=== PATIENT | female | born 2000 ===

== ENCOUNTER 2019-12-10 21:11 | Inpatient (IN) | payer MEDICAID, OTHER ==
[2019-12-11] MEDS ORDERED: D5 1/2 NS w/20 mEq KCL 1,000 ML IV PRN (00:15)
[2019-12-11] MEDS ORDERED: Sodium Chloride 0.9% 1,000 ML IV PRN ×4 (00:15)
[2019-12-11] MEDS ORDERED: NS 0.9% w/ 20 MEQ KCL 1,000 ML IV PRN ×2 (00:15)
[2019-12-11] MEDS ORDERED: Electrolyte Replacement Protocol IVPB SCH (00:15)
[2019-12-11] MEDS ORDERED: Dextrose 5 %-0.45 % NaCl 1,000 ML IV PRN (00:15)
[2019-12-11] MEDS ORDERED: HUMULIN R 100 UNITS in Sodium Chloride 0.9% 100 ML IVPB SCH (00:15)
[2019-12-11] MEDS ORDERED: hydrALAZINE 20 MG/ML VIAL SLOW IVP PRN (00:16)
[2019-12-11] MEDS ORDERED: Morphine 2 MG/ML VIAL SLOW IVP PRN (00:16)
[2019-12-11] MEDS ORDERED: cloNIDine 0.1 MG TAB PO PRN (00:16)
[2019-12-11] MEDS ORDERED: Promethazine HCl 12.5 MG in Sodium Chloride 0.9% 50 ML IVPB PRN (00:16)
[2019-12-11] MEDS ORDERED: Labetalol HCl 100 MG/20 ML VIAL SLOW IVP PRN (00:16)
[2019-12-11] MEDS ORDERED: Guaifenesin DM 100-10/5 ML UDCUP PO PRN (00:16)
[2019-12-11] MEDS ORDERED: Acetaminophen 325 MG TAB PO PRN (00:16)
--- NOTE | 2019-12-11 00:19 | PDOC.HHP ---
Hospitalist HPI - History of Present Illness Pleuritic chest pain History of Present Illness: Patient is a 19 year old female with PMH T1DM, PTSH, cystic fibrosis, anxiety who presents as transfer from [facility] ED for pleuritic chest pain, patient reports the pain began 3 weeks ago, it is left sided and pleuritic, 10/10, not positional. Denies nausea, vomiting, abdominal pain, calf pain, tenderness, cough, fever, diaphoresis, sob, palpitation. There, patient had labs which revealed Na 151, K 5.7, glucose 674. She also had high D dimer. COVID 19 screen negative, UA w/ 2+ blood and glucose, cardiac enzymes negative. EKG was sinus tachycardia rate 130s no acute ST changes or other acute changes. Patient was suspected to be in DKA, given insulin gtt which ran out on ambulance as well as IVF 2L and pain/anxiety medication. She had a central line placed in R femoral. CXR perfromed and suspected R upper lobe pneumonia. CTA chest ordered, which showed R hilar lymphadenopathy, R axilla soft tissue changes (which are consistent with patients visible skin pattern and do not concern me), RUL infiltrates, chronic pancreatitis. Patient radiology report at first states she has PE however was addended to retract this and report no visible PE observed. She went to [facility] and [facility] before going to [place] ED which is where she was before being transferred here. She reports that she controls DM well at home normally, takes lantus 30/25 units with breakfast/dinner, as well as a sliding scale of short acting insulin 5-20 units with each meal. Here labs markedly improved. glucose 300, BMP otherwise back to normal. Hospitalist ROS - Review of Systems Constitutional: denies: fever, chills, sweats, weakness, malaise, other Eyes: denies: pain, vision change, conjunctivae inflammation, eyelid inflammation, redness, other ENT: denies: ear pain, ear discharge, nose pain, nose discharge, nose congestion , mouth pain, mouth swelling, throat pain, throat swelling, other Respiratory: reports: pleuritic pain. denies: cough, dry, shortness of breath, hemoptysis, SOB with excertion, sputum, wheezing, other Cardiovascular: denies: chest pain, palpitations, orthopnea, paroxysmal noc. dyspnea, edema, light headedness, other Gastrointestinal: denies: nausea, vomiting, abdominal pain, diarrhea, constipation, melena, hematochezia, other Genitourinary: denies: dysuria, frequency, incontinence, hematuria, retention, other Musculoskeletal: denies: neck pain, shoulder pain, arm pain, back pain, hand pain, leg pain, foot pain, other Skin: denies: rash, lesions, jinny, bruising, other Neurological: denies: weakness, numbness, incoordination, change in speech, confusion, seizures, other All other systems reviewed; all pertinent +/- noted in HPI/Subj - Medication Medications: insulin per HPI. buspirone and lisinopril unknown doses Hospitalist History - Past Medical History Other Medical History: T1DM, PTSH, cystic fibrosis, anxiety - Past Surgical History Other Surgical History: nasal polyp, appendectomy - Family History Family History: reports: no pertinent history - Social History Smoking Status: Never smoker Alcohol: reports: None Drugs: reports: none - Exam General Appearance: NAD, awake alert General - other findings: vital signs reviewed, see nursing notes for values Eye: PERRL, anicteric sclera ENT: normocephalic atraumatic, no oropharyngeal lesions, moist mucosa Neck: supple, symmetric, no JVD, no thyromegaly, no lymphadenopathy, no carotid bruit Heart: RRR, no murmur, no gallops, no rubs, normal peripheral pulses Respiratory: CTAB, no wheezes, no rales, no ronchi, normal chest expansion, no tachypnea, normal percussion Gastrointestinal: soft, non-tender, non-distended, normal bowel sounds, no palpable masses, no hepatomegaly, no splenomegaly, no bruit Extremities: no cyanosis, no clubbing, no edema Skin: normal turgor, no lesions, no rashes Neurological: cranial nerve grossly intact, normal sensation to touch, no weakness, no focal deficits, no new deficit Musculoskeletal: normal tone, normal strength, no muscle wasting Psychiatric: normal affect, normal behavior, A&O x 3 Hospitalist Results - Labs Result Diagrams: 12/11/19 00:59 12/11/19 00:59 Lab results: ~75 pages outside records reviewed, see HPI for details. Hospitalist H&P A/P - Plan Plan: Patient is a 19 year old female with PMH T1DM, PTSH, cystic fibrosis, anxiety who presents as transfer from [facility] ED for pleuritic chest pain, # RLL pneumonia - likely cause of pleuritic pain, of note patient had CTA at outside hospital with prelim read of PE but addendum stating no PE observed. - admitted to ICU for DKA - start azithromycin - consult pulmonary in AM, may benefit from repeat CTA this admission since outside records contradictory perhaps # DKA, t1DM w/ hyperglyemia - has resolved with insulin drip in transit, will resume insulin at patient reported home dose and start diabetic diet and continue IVF # hypernatremia # hyperkalemia - likely due to DKA which has resolved # history of psychiatric disorder - PTSD, anxiety, continue home meds and add PRN ativan for acute panic symptoms # cystic fibrosis - pancreas changes noted on imaging, resume creon # DVT ppx - lovenox # GI ppx - PPI Full code likely able to downgrade in AM now that DKA resolved
[2019-12-11] MEDS ORDERED: Enoxaparin Sodium 80 MG/0.8 ML SYRINGE SC SCH (01:00)
[2019-12-11 01:09] LABS: #Basophils 0.1 thou/uL (0.0-0.2); #Lymphocytes 2.3 thou/uL (1.20-3.40); #Monocytes 0.6 thou/uL (0.11-0.59); #Neutrophils 6.5 thou/uL (1.40-6.50); %Basophils 0.6 % (0.0-1.0); %Eosinophils 0.5 % (0.0-10.0); %Lymphocytes 24.2 % (28.0-48.0); %Monocytes 6.2 % (0.0-4.0); %Neutrophils 68.5 % (31.0-61.0); Hemoglobin 11.4 g/dL (12.0-16.0); Mean Corpuscular HGB CONC 33.9 g/dL (32.0-36.0); Mean Corpuscular Hemoglobin 30.7 pg (25.0-35.0); Mean Corpuscular Volume 90.6 fL (78.0-98.0); Platelet Count 317 thou/uL (130-400); RBC Distribution Width 10.5 % (11.5-14.5); White Blood Cell (WBC) Count 9.5 thou/uL (4.8-10.8)
[2019-12-11 01:14] LABS: BHCG - Serum Negative (NEGATIVE); Pregs Control Background? CLEAR/WHITE (CLR/WHITE); Pregs Control Bar Appear? YES (CONTROL BAR)
[2019-12-11 01:15] LABS: Prothrombin Time 13.5 sec (12.0-14.7)
[2019-12-11 01:29] LABS: Lactic Acid 0.8 mmol/L (0.5-2.2)
[2019-12-11 01:32] LABS: Anion Gap 14 mmol/L (10-20); BUN (Urea Nitrogen) 11 mg/dL (7.0-18.7); Calc. Creatinine Clearance 0 mL/min (70-130); Calcium 8.9 mg/dL (7.8-10.44); Carbon Dioxide 21 mmol/L (22-29); Chloride 103 mmol/L (98-107); Estimated GFR-MDRD Greater than 90; Glucose 300 mg/dL (70-105); Magnesium 1.7 mg/dL (1.7-2.2); Phosphorus 2.4 mg/dL (2.3-4.7); Potassium 4.1 mmol/L (3.5-5.1); Sodium 134 mmol/L (136-145)
[2019-12-11 01:37] LABS: ALT (SGPT) 37 U/L (8-55); AST (SGOT) 27 U/L (5-34); Albumin 3.8 g/dL (3.5-5.0); Alkaline Phosphatase 124 U/L (40-100); Anion Gap 14 mmol/L (10-20); BUN (Urea Nitrogen) 11 mg/dL (7.0-18.7); Bilirubin, Total 0.3 mg/dL (0.2-1.2); Calc. Creatinine Clearance 0 mL/min (70-130); Carbon Dioxide 21 mmol/L (22-29); Chloride 103 mmol/L (98-107); Estimated GFR-MDRD Greater than 90; Glucose 302 mg/dL (70-105); Protein, Total 6.8 g/dL (6.0-8.3); Sodium 134 mmol/L (136-145)
[2019-12-11] MEDS: Sodium Chloride 0.9% 1,000 ML IV SCH ×4 (01:37→17:20)
[2019-12-11 01:43] VITALS: BMI 24.8
[2019-12-11] MEDS ORDERED: Dextrose 5% in Water 1,000 ML IV PRN ×2 (02:04→02:06)
[2019-12-11] MEDS ORDERED: Dextrose 50% Abboject 50 ML SYRINGE SLOW IVP PRN (02:04)
[2019-12-11] MEDS ORDERED: Dextrose 50% Abboject 50 ML SYRINGE IVP PRN (02:06)
[2019-12-11] MEDS ORDERED: Insulin Regular 300 UNITS/3 ML VIAL SC PRN (02:06)
[2019-12-11] MEDS: Lorazepam 2 MG/ML VIAL SLOW IVP PRN (03:00)
[2019-12-11] MEDS: HYDROcodone/Acetaminophen 5/325 mg Tablet PO PRN (03:00)
[2019-12-11] MEDS: Azithromycin 500 MG in Sodium Chloride 0.9% 250 ML 250 ML IVPB SCH (03:10)
[2019-12-11] MEDS: HumaLOG 300 UNITS/3 ML VIAL SC PRN ×4 (05:55→22:34)
[2019-12-11] MEDS: Morphine 2 MG/ML VIAL SLOW IVP PRN ×4 (06:03→23:41)
[2019-12-11 06:22] LABS: Anion Gap 12 mmol/L (10-20); BUN (Urea Nitrogen) 10 mg/dL (7.0-18.7); Calc. Creatinine Clearance 113 mL/min (70-130); Calcium 8.5 mg/dL (7.8-10.44); Carbon Dioxide 22 mmol/L (22-29); Chloride 105 mmol/L (98-107); Estimated GFR-MDRD Greater than 90; Glucose 372 mg/dL (70-105); Potassium 4.4 mmol/L (3.5-5.1); Sodium 135 mmol/L (136-145)
[2019-12-11] MEDS ORDERED: Magnesium 2 GM/50 ML 2 GM in Premix Bag 1 BAG IVPB SCH (06:30)
--- NOTE | 2019-12-11 08:02 | RAD ---
CHEST 1 VIEW: INDICATION: History of pneumonia and BKA. COMPARISON: None. FINDINGS/IMPRESSION: There is airspace consolidation in the right upper lobe suspicious for pneumonia. The left lung is c lear. The heart size is normal. No pleural effusion or pneumothorax is evident. No acute osseous a bnormality is noted. POS: BH
[2019-12-11] MEDS: Lisinopril 10 MG TAB PO SCH (08:12)
[2019-12-11] MEDS: PARoxetine 20 MG TAB PO SCH (08:13)
[2019-12-11] MEDS: Pancrelipase DR 12,000 1 CAP PO SCH ×3 (08:14→17:17)
[2019-12-11] MEDS: Sucralfate 1 GM TAB PO SCH ×4 (08:14→22:19)
[2019-12-11] MEDS: busPIRone HCl 10 MG TAB PO SCH ×2 (08:15→22:18)
[2019-12-11] MEDS: Famotidine 20 MG TAB PO SCH ×2 (08:16→22:18)
[2019-12-11] MEDS: Insulin Glargine 30 UNITS in Pre-Filled Syringe 1 EACH SC SCH (08:16)
[2019-12-11] MEDS: Mometasone 100 MCG/PUFF (1 INHALER) INH SCH ×2 (08:20→19:43)
[2019-12-11] MEDS: Polyethylene Glycol 3350 17 GM Packet PO SCH (08:37)
[2019-12-11 08:52] LABS: Anion Gap 9 mmol/L (10-20); BUN (Urea Nitrogen) 10 mg/dL (7.0-18.7); Calc. Creatinine Clearance 132 mL/min (70-130); Calcium 8.4 mg/dL (7.8-10.44); Carbon Dioxide 23 mmol/L (22-29); Chloride 108 mmol/L (98-107); Estimated GFR-MDRD Greater than 90; Glucose 203 mg/dL (70-105); Potassium 3.7 mmol/L (3.5-5.1); Sodium 136 mmol/L (136-145)
[2019-12-11] MEDS ORDERED: Azithromycin 250 MG TAB PO SCH (09:00)
[2019-12-11] MEDS ORDERED: Enoxaparin Sodium 40 MG/0.4 ML SYRINGE SC SCH (09:00)
[2019-12-11] MEDS: Ondansetron PF 4 MG/2 ML Vial IVP PRN ×2 (09:06→14:41)
--- NOTE | 2019-12-11 13:00 | PDOC.HOSPP ---
- Subjective Encounter Date: 12/11/19 Subjective: The patient is complaining of chest pain that is worse with movement, breathing , or eating. She stated that her pain has been going on for the past few weeks. - Objective Vital Signs & Weight: Vital Signs (12 hours) Temp Pulse Resp BP Pulse Ox 12/11/19 10:40 105 H 14 100 12/11/19 08:12 100/68 12/11/19 08:00 98.6 F 12/11/19 04:00 98.8 F Weight Weight 131 lb 9.855 oz Most Recent Monitor Data Heart Rate from ECG 115 NIBP 101/57 NIBP BP-Mean 71 Respiration from ECG 19 SpO2 95 I&O: 12/10/19 12/11/19 12/12/19 06:59 06:59 06:59 Intake Total 998 Output Total 300 Balance 698 Result Diagrams: 12/11/19 00:59 12/11/19 08:06 Additional Labs: Accuchecks 12/11/19 12/11/19 12/11/19 05:53 01:18 00:14 POC Glucose 361 H 298 H 276 H Hospitalist ROS - Medication Medications: Active Medications Generic Name Dose Route Start Last Admin Trade Name Freq PRN Reason Stop Dose Admin Hydrocodone Bitart/Acetaminophen 1 tab 12/11/19 00:16 12/11/19 03:00 [place] 5/325 PO 1 tab Q4H PRN Administration Moderate Pain (4-6) Albuterol/Ipratropium 3 ml 12/11/19 00:16 12/11/19 10:40 Duoneb NEB 3 ml [id number] PRN Administration SOB &/or Wheezing Lipase/Protease/Amylase 8 cap 12/11/19 08:00 12/11/19 08:[address] [place] [id number] PO 4 cap TID-WM ANNE Administration Buspirone HCl 10 mg 12/11/19 09:00 12/11/19 08:15 Buspar PO 10 mg BID ANNE Administration Famotidine 20 mg 12/11/19 09:00 12/11/19 08:16 Pepcid PO 20 mg BID ANNE Administration Sodium Chloride 1,000 mls @ 100 mls/hr 12/11/19 00:45 12/11/19 12:45 Normal Saline 0.9% IV Not Given .Q10H NANE Insulin Glargine 30 units/ 0.3 mls @ 0 mls/hr 12/11/19 09:00 12/11/19 08:16 Miscellaneous Medication SC 0.3 mls QAM ANNE Administration Azithromycin 500 mg/ Sodium 250 mls @ 250 mls/hr 12/11/19 03:00 12/11/19 03: 10 Chloride IVPB 250 mls Q24HR ANNE Administration Insulin Human Lispro 0 units 12/11/19 02:04 12/11/19 05:55 Humalog SC 10 units .MODERATE SLIDING SC PRN Administration Moderate Correctional Scale Lisinopril 10 mg 12/11/19 09:00 12/11/19 08:12 Zestril PO 10 mg DAILY ANNE Administration Lorazepam 0.5 mg 12/11/19 02:22 12/11/19 03:00 Ativan SLOW IVP 0.5 mg Q4H PRN Administration Anxiety/Agitation Mometasone Furoate 100 mcg 12/11/19 09:00 12/11/19 08:20 Asmanex Hfa 100 Mcg INH 2 puff BID ANNE Administration Morphine Sulfate 3 mg 12/11/19 02:22 12/11/19 10:54 Morphine SLOW IVP 3 mg Q3H PRN Administration severe pain 4-10 Ondansetron HCl 4 mg 12/11/19 00:16 12/11/19 09:06 Zofran IVP 4 mg Q6H PRN Administration Nausea/Vomiting use 1st Pantoprazole Sodium 40 mg 12/11/19 09:00 12/11/19 08:36 Protonix PO Not Given DAILY [facility] Paroxetine HCl 10 mg 12/11/19 09:00 12/11/19 08:13 Paxil PO 10 mg DAILY ANNE Administration Polyethylene Glycol 17 gm 12/11/19 09:00 12/11/19 08:37 Miralax PO Not Given DAILY ANNE Sodium Chloride 10 ml 12/11/19 09:00 12/11/19 08:37 Flush - Normal Saline IVF Not Given Q12HR ANNE Sucralfate 1 gm 12/11/19 07:30 12/11/19 08:14 Carafate PO 1 gm ACHS ANNE Administration - Exam General Appearance: awake alert Neck: supple Heart - other findings: Tachycardia with regular rhythm Respiratory: CTAB, normal chest expansion, no tachypnea Neurological: cranial nerve grossly intact, no weakness Hosp A/P (1) DKA (diabetic ketoacidoses) Code(s): E11.10 - TYPE 2 DIABETES MELLITUS WITH KETOACIDOSIS WITHOUT COMA Status: Acute (2) Chest pain Code(s): R07.9 - CHEST PAIN, UNSPECIFIED Status: Acute (3) Anxiety Code(s): F41.9 - ANXIETY DISORDER, UNSPECIFIED Status: Acute - Plan Diabetic ketoacidosis resolved. The patient is currently on long-acting insulin and sliding scale. He is complaining of generalized chest pain that is exacerbated by multiple things including movement, breathing, or eating. Patient has history of anxiety and her pain does not fit the description of any physical abnormality. I suspect multifactorial cause for her chest pain including psychological issues. We will try to wean her off opioids over the next 24 to 48 hours.
[2019-12-11] MEDS ORDERED: Insulin Glargine 25 UNITS in Pre-Filled Syringe 1 EACH SC SCH (21:00)
[2019-12-11] MEDS ORDERED: Enoxaparin Sodium 60 MG/0.6 ML SYRINGE SC SCH (21:00)
[2019-12-11] MEDS: Enoxaparin Sodium 40 MG/0.4 ML SYRINGE SC SCH (22:17)
[2019-12-11] MEDS: Gabapentin 300 MG CAP PO SCH (22:25)
[2019-12-12] MEDS ORDERED: cefTRIAXone\\ROCEPHIN 1 GM in Sodium Chloride 0.9% 100 ML IVPB SCH (00:30)
[2019-12-12] MEDS: Lorazepam 2 MG/ML VIAL SLOW IVP PRN ×3 (01:01→14:18)
[2019-12-12] MEDS: HYDROcodone/Acetaminophen 5/325 mg Tablet PO PRN ×3 (01:53→21:50)
[2019-12-12] MEDS ORDERED: Chloraseptic Spray 180 ml Bottle PO PRN (03:04)
[2019-12-12] MEDS ORDERED: Benzonatate 100 MG CAP PO PRN (03:05)
[2019-12-12] MEDS: Azithromycin 500 MG in Sodium Chloride 0.9% 250 ML 250 ML IVPB SCH (03:24)
[2019-12-12] MEDS: Cepastat Lozenges 1 LOZ PO PRN ×2 (05:41→18:42)
[2019-12-12] MEDS: HumaLOG 300 UNITS/3 ML VIAL SC PRN ×3 (05:44→17:36)
[2019-12-12] MEDS: Mometasone 100 MCG/PUFF (1 INHALER) INH SCH ×2 (06:34→20:30)
[2019-12-12 06:36] LABS: Anion Gap 12 mmol/L (10-20); BUN (Urea Nitrogen) 7 mg/dL (7.0-18.7); Calc. Creatinine Clearance 132 mL/min (70-130); Calcium 9.1 mg/dL (7.8-10.44); Carbon Dioxide 23 mmol/L (22-29); Chloride 104 mmol/L (98-107); Estimated GFR-MDRD Greater than 90; Glucose 353 mg/dL (70-105); Potassium 3.9 mmol/L (3.5-5.1); Sodium 135 mmol/L (136-145)
[2019-12-12] MEDS: Sodium Chloride 0.9% 1,000 ML IV SCH ×3 (07:30→18:06)
[2019-12-12] MEDS: Pancrelipase DR 12,000 1 CAP PO SCH ×3 (08:15→17:06)
[2019-12-12] MEDS: PARoxetine 20 MG TAB PO SCH (08:16)
[2019-12-12] MEDS: Sucralfate 1 GM TAB PO SCH ×4 (08:16→20:37)
[2019-12-12] MEDS: Famotidine 20 MG TAB PO SCH ×2 (08:16→20:37)
[2019-12-12] MEDS: busPIRone HCl 10 MG TAB PO SCH (08:16)
[2019-12-12] MEDS: Insulin Glargine 30 UNITS in Pre-Filled Syringe 1 EACH SC SCH (08:17)
[2019-12-12] MEDS: Lisinopril 10 MG TAB PO SCH (08:17)
[2019-12-12] MEDS: Polyethylene Glycol 3350 17 GM Packet PO SCH (08:18)
--- NOTE | 2019-12-12 11:44 | PDOC.HOSPP ---
- Subjective Encounter Date: 12/12/19 Subjective: The patient is resting comfortably - Objective Vital Signs & Weight: Vital Signs (12 hours) Temp Pulse Resp BP Pulse Ox 12/12/19 08:10 100 12/12/19 07:57 97.8 F 89 14 112/75 100 12/12/19 04:00 98.1 F 82 18 118/80 99 12/12/19 01:38 110 H 24 H 118/91 H 100 12/12/19 00:49 126 H 24 H 144/83 H 100 12/12/19 00:27 92 12 100 12/12/19 00:09 98.2 F 92 20 127/85 98 Weight Weight 131 lb 9.855 oz Most Recent Monitor Data Heart Rate from ECG 105 NIBP 122/75 NIBP BP-Mean 90 Respiration from ECG 19 SpO2 97 I&O: 12/11/19 12/12/19 12/13/19 06:59 06:59 06:59 Intake Total 998 2410 Output Total 300 400 Balance 698 2009 Result Diagrams: 12/11/19 00:59 12/12/19 05:45 Additional Labs: Accuchecks 12/12/19 12/12/19 12/11/19 10:30 05:49 21:50 POC Glucose 300 H 349 H 230 H 12/11/19 12/11/19 16:54 12:55 POC Glucose 155 H 256 H Hospitalist ROS - Medication Medications: Active Medications Generic Name Dose Route Start Last Admin Trade Name Freq PRN Reason Stop Dose Admin Hydrocodone Bitart/Acetaminophen 1 tab 12/11/19 00:16 12/12/19 05:57 [place] 5/325 PO 1 tab Q4H PRN Administration Moderate Pain (4-6) Albuterol/Ipratropium 3 ml 12/11/19 00:16 12/12/19 00:27 Duoneb NEB 3 ml [id number] PRN Administration SOB &/or Wheezing Lipase/Protease/Amylase 8 cap 12/11/19 08:00 12/12/19 08:[address] [place] [id number] PO 5 cap TID-WM ANNE Administration Buspirone HCl 10 mg 12/12/19 09:00 12/12/19 08:16 Buspar PO 10 mg DAILY ANNE Administration Enoxaparin Sodium 40 mg 12/11/19 21:00 12/11/19 22:17 Lovenox SC 40 mg 2100 ANNE Administration Famotidine 20 mg 12/11/19 09:00 12/12/19 08:16 Pepcid PO 20 mg BID ANNE Administration Gabapentin 300 mg 12/11/19 21:00 12/11/19 22:25 Neurontin PO 300 mg HS ANNE Administration Sodium Chloride 1,000 mls @ 100 mls/hr 12/11/19 00:45 12/12/19 07:30 Normal Saline 0.9% IV Not Given .Q10H ANNE Insulin Glargine 30 units/ 0.3 mls @ 0 mls/hr 12/11/19 09:00 12/12/19 08:17 Miscellaneous Medication SC 0.3 mls QAM ANNE Administration Azithromycin 500 mg/ Sodium 250 mls @ 250 mls/hr 12/11/19 03:00 12/12/19 03: 24 Chloride IVPB 250 mls Q24HR ANNE Administration Insulin Human Lispro 0 units 12/11/19 02:04 12/12/19 05:44 Humalog SC 10 units .MODERATE SLIDING SC PRN Administration Moderate Correctional Scale Lisinopril 10 mg 12/11/19 09:00 12/12/19 08:17 Zestril PO 10 mg DAILY ANNE Administration Lorazepam 0.5 mg 12/11/19 02:22 12/12/19 08:10 Ativan SLOW IVP 0.5 mg Q4H PRN Administration Anxiety/Agitation Mometasone Furoate 100 mcg 12/11/19 09:00 12/12/19 06:34 Asmanex Hfa 100 Mcg INH 2 puff BID ANNE Administration Morphine Sulfate 3 mg 12/11/19 02:22 12/11/19 23:41 Morphine SLOW IVP 3 mg Q3H PRN Administration severe pain 4-10 Ondansetron HCl 4 mg 12/11/19 00:16 12/11/19 14:41 Zofran IVP 4 mg Q6H PRN Administration Nausea/Vomiting use 1st Pantoprazole Sodium 40 mg 12/11/19 09:00 12/12/19 08:16 Protonix PO 40 mg DAILY ANNE Administration Paroxetine HCl 10 mg 12/11/19 09:00 12/12/19 08:16 Paxil PO 10 mg DAILY ANNE Administration Phenol 0 ml 12/12/19 03:04 12/12/19 05:41 Chloraseptic [place] 180 Ml Bot PO 1 spr Q2H PRN Administration SORE THROAT Polyethylene Glycol 17 gm 12/11/19 09:00 12/12/19 08:18 Miralax PO 17 gm DAILY ANNE Administration Sodium Chloride 10 ml 12/11/19 09:00 12/12/19 08:18 Flush - Normal Saline IVF 10 ml Q12HR ANNE Administration Sucralfate 1 gm 12/11/19 07:30 12/12/19 08:16 Carafate PO 1 gm ACHS ANNE Administration Throat Lozenges 1 jc 12/12/19 03:05 12/12/19 05:41 Cepastat Lozenges PO 1 jc Q2H PRN Administration SORE THROAT - Exam ENT: normocephalic atraumatic Neck: supple, no JVD Respiratory: normal chest expansion, no tachypnea Extremities: no cyanosis, no clubbing Hosp A/P (1) DKA (diabetic ketoacidoses) Code(s): E11.10 - TYPE 2 DIABETES MELLITUS WITH KETOACIDOSIS WITHOUT COMA Status: Acute (2) Chest pain Code(s): R07.9 - CHEST PAIN, UNSPECIFIED Status: Acute (3) Anxiety Code(s): F41.9 - ANXIETY DISORDER, UNSPECIFIED Status: Acute - Plan 12/10: Diabetic ketoacidosis resolved. The patient is currently on long-acting insulin and sliding scale. He is complaining of generalized chest pain that is exacerbated by multiple things including movement, breathing, or eating. Patient has history of anxiety and her pain does not fit the description of any physical abnormality. I suspect multifactorial cause for her chest pain including psychological issues. We will try to wean her off opioids over the next 24 to 48 hours. 12/11: The patient's sugar levels remain uncontrolled. Increase Lantus to 35 units in the evening and 30 units in the morning. If we can control her sugar levels, we can hopefully discharge her home tomorrow.
[2019-12-12] MEDS: Morphine 2 MG/ML VIAL SLOW IVP PRN ×2 (18:10→23:42)
[2019-12-12] MEDS: Gabapentin 300 MG CAP PO SCH (20:37)
[2019-12-12] MEDS: Enoxaparin Sodium 40 MG/0.4 ML SYRINGE SC SCH (20:37)
[2019-12-12] MEDS ORDERED: Insulin Glargine 35 UNITS in Pre-Filled Syringe 1 EACH SC SCH (21:00)
[2019-12-13] MEDS: Sodium Chloride 0.9% 1,000 ML IV SCH ×2 (03:15→12:01)
[2019-12-13] MEDS: Azithromycin 500 MG in Sodium Chloride 0.9% 250 ML 250 ML IVPB SCH (03:58)
[2019-12-13] MEDS: HYDROcodone/Acetaminophen 5/325 mg Tablet PO PRN ×2 (04:02→11:00)
[2019-12-13] MEDS: Morphine 2 MG/ML VIAL SLOW IVP PRN (04:44)
[2019-12-13 06:51] LABS: #Eosinphils 0.1 thou/uL (0.0-0.7); #Lymphocytes 2.5 thou/uL (1.20-3.40); #Monocytes 0.4 thou/uL (0.11-0.59); #Neutrophils 3.3 thou/uL (1.40-6.50); %Basophils 0.7 % (0.0-1.0); %Eosinophils 1.9 % (0.0-10.0); %Lymphocytes 38.8 % (28.0-48.0); %Monocytes 6.9 % (0.0-4.0); %Neutrophils 51.7 % (31.0-61.0); Hemoglobin 10.6 g/dL (12.0-16.0); Mean Corpuscular HGB CONC 32.5 g/dL (32.0-36.0); Mean Corpuscular Hemoglobin 30.1 pg (25.0-35.0); Mean Corpuscular Volume 92.7 fL (78.0-98.0); Mean Platelet Volume 9.5 fL (7.4-10.4); Platelet Count 283 thou/uL (130-400); RBC Distribution Width 10.8 % (11.5-14.5); Red Blood Cell (RBC) Count 3.51 mill/uL (4.00-5.20); White Blood Cell (WBC) Count 6.4 thou/uL (4.8-10.8)
[2019-12-13 07:14] LABS: Anion Gap 13 mmol/L (10-20); BUN (Urea Nitrogen) 5 mg/dL (7.0-18.7); Calc. Creatinine Clearance 148 mL/min (70-130); Calcium 9.1 mg/dL (7.8-10.44); Carbon Dioxide 25 mmol/L (22-29); Chloride 104 mmol/L (98-107); Estimated GFR-MDRD Greater than 90; Glucose 242 mg/dL (70-105); Potassium 3.6 mmol/L (3.5-5.1); Sodium 138 mmol/L (136-145)
[2019-12-13] MEDS: Insulin Glargine 30 UNITS in Pre-Filled Syringe 1 EACH SC SCH (08:33)
[2019-12-13] MEDS: Pancrelipase DR 12,000 1 CAP PO SCH ×2 (08:33→11:00)
[2019-12-13] MEDS: PARoxetine 20 MG TAB PO SCH (08:34)
[2019-12-13] MEDS: Lisinopril 10 MG TAB PO SCH (08:34)
[2019-12-13] MEDS: Famotidine 20 MG TAB PO SCH (08:34)
[2019-12-13] MEDS: busPIRone HCl 10 MG TAB PO SCH (08:34)
[2019-12-13] MEDS: Lorazepam 2 MG/ML VIAL SLOW IVP PRN (08:35)
[2019-12-13] MEDS: Polyethylene Glycol 3350 17 GM Packet PO SCH (08:35)
[2019-12-13] MEDS: Mometasone 100 MCG/PUFF (1 INHALER) INH SCH (08:44)
[2019-12-13] MEDS: Sucralfate 1 GM TAB PO SCH ×2 (08:47→10:59)
[2019-12-13] MEDS: HumaLOG 300 UNITS/3 ML VIAL SC PRN (12:26)
[2019-12-13 17:00] VITALS: BP 128/83; TEMP 98
--- NOTE | 2019-12-14 17:13 | DIS ---
DATE OF ADMISSION: 12/10/2019 DATE OF DISCHARGE: 12/13/2019 DISCHARGE DIAGNOSES: 1. Diabetic ketoacidosis. 2. Atypical chest pain. 3. Anxiety disorder. DISCHARGE MEDICATIONS: 1. Lantus 35 units in the evening and 30 units in the morning. 2. Insulin lispro 5 units with meals. 3. Buspirone 10 mg orally twice daily. 4. Gabapentin 300 mg orally nightly. 5. Pantoprazole 40 mg orally daily for 30 days. 6. Paroxetine 10 mg orally daily. 7. Sucralfate 1 gram orally a.c. and at bedtime. HISTORY OF PRESENT ILLNESS AND HOSPITAL COURSE: The patient is a 19-year-old female with past medical history of anxiety, cystic fibrosis, PTSD, and type 1 diabetes mellitus, who was transferred to our hospital from outside ER for DKA. The patient was admitted to the intensive care unit and was managed with IV fluids, electrolyte replacement, and IV insulin per DKA protocol. The patient also received pain medications and Protonix for an atypical chest pain. Her anion gap closed and her acidosis resolved. Subsequently, she was transitioned to subcutaneous insulin and the dose was titrated to achieve adequate blood sugar control. At this time, the patient is stable to be discharged home with outpatient followup with her PCP. Job ID: [id number]
--- NOTE | 2019-12-15 04:54 | PQF ---
CLINICAL DOCUMENTATION CLARIFICATION FORM: Dear : Ezequiel Ellis Date / Time: 12/15/2019 Please exercise your independent, professional judgment in responding to the clarification form. Clinical indicators are provided on the bottom of this form for your review Please check appropriate box(es) to clarify if the following diagnosis has been ruled in our ruled out: Pneumonia [ > ] Ruled in diagnosis [ ] Continue to treat [ ] Resolved [ ] Ruled out diagnosis [ ] Improving [ ] Cannot rule out diagnosis [ ] Other diagnosis [ ] Unable to determine In addition, please specify: Present on Admission (POA): [< ] Yes [ ] No [ ] Unable to determine To be completed by CDI/Coding staff for physician review: Present Clinical Indicators - Signs / Symptoms / Labs Results and Location in Medical Record [ x ] RLL pneumonia-likely cause of pleuritic chest pain. Patient had CTA at outside hospital with prelim read of PE, but addendum stating no PE observed H&P [ x ] There is airspace consolidation in the right upper lobe suspicious for pneumonia Chest x-ray 12/10 by Johan Tinoco MD [ x ] Patient presents as transfer from [place] for pleuritic chest pain. CXR performed and suspected RUL pneumonia, RUL infiltrates H&P Present Risk Factors Results and Location in Medical Record [ x ] Cystic fibrosis H&P Present Treatments Results and Location in Medical Record [ x ] Chest x-ray 12/10 by Johan Tinoco MD Chest x-ray [ x ] Levaquin 500 mg PO 12/10-12/12 Medications CDS/Corrugator Helper Signature: [email or web address] Phone #: Date/ Time: 12/15/2019 This is a permanent part of the Medical Record [facility]
== END 2019-12-13 15:41 | disposition home or self-care (01) | DRG 637 ==
LOC: CCU 21:11 → T4-B 12-11 16:15
PROVIDERS: ADMIT Internal Medicine; ATTEND Internal Medicine
DX: E10.10 Type 1 diabetes mellitus with ketoacidosis without coma (principal); J18.9 Pneumonia, unspecified organism; E84.9 Cystic fibrosis, unspecified; E87.0 Hyperosmolality and hypernatremia; F41.9 Anxiety disorder, unspecified; F43.10 Post-traumatic stress disorder, unspecified; R07.89 Other chest pain; Z90.49 Acquired absence of other specified parts of digestive tract
CPT/HCPCS: 36415; 36416; 36600; 71045; 80048; 80053; 82010; 83605; 83735; 84100; 84703; 85025; 85610; 90471; 90732; 94640; G0009; J0456; J1650; J1815; J2060; J2270; J2405; J3475; J3480; J3490; J7050; J7620